=== PATIENT | male | born 1945 | race Caucasian/White ===

== ENCOUNTER 2016-09-29 11:52 | Outpatient (CLI) | payer MEDICARE ==
[2016-09-29 12:35] LABS: #Basophils 0.2 thou/uL (0.0-0.2); #Eosinphils 0.6 thou/uL (0.0-0.7); #Lymphocytes 1.7 thou/uL (1.20-3.40); #Monocytes 0.7 thou/uL (0.11-0.59); #Neutrophils 3.4 thou/uL (1.40-6.50); %Basophils 2.6 % (0.0-1.0); %Lymphocytes 25.5 % (21.0-51.0); %Monocytes 10.8 % (0.0-10.0); Hemoglobin 14.3 g/dL (14.0-18.0); Large Platelets SLIGHT; MDiff Complete? YES; Mean Corpuscular HGB CONC 31.8 g/dL (32.0-36.0); Mean Corpuscular Hemoglobin 30.8 pg (27.0-31.0); Mean Corpuscular Volume 96.9 fl (80.0-94.0); Mean Platelet Volume 15.5 fL (7.4-10.4); Platelet Count 119 thou/uL (130-400); Red Blood Cell (RBC) Count 4.63 mill/uL (4.70-6.10); White Blood Cell (WBC) Count 6.5 thou/uL (4.8-10.8)
--- NOTE | 2016-09-29 13:22 | RAD ---
TWO VIEWS CHEST: HISTORY: Pneumonia, congestive heart failure. FINDINGS: PA and lateral views of the chest are obtained. The lungs are well aerated. No evidence of active intrathoracic disease is seen. No evidence of effusions, pneumonia, or pneumothorax is seen. IMPRESSION: Unremarkable 2 views chest. POS: [facility]
[2016-09-29 15:36] LABS: ALT (SGPT) 28 U/L (0-55); AST (SGOT) 24 U/L (5-34); Albumin 4.3 g/dL (3.4-4.8); Alkaline Phosphatase 161 U/L (40-150); Anion Gap 12 mmol/L (10-20); BUN (Urea Nitrogen) 22 mg/dL (8.4-25.7); Bilirubin, Total 1.1 mg/dL (0.2-1.2); Calc. Creatinine Clearance 0 mL/min (70-130); Calcium 9.6 mg/dL (7.8-10.44); Carbon Dioxide 27 mmol/L (23-31); Chloride 104 mmol/L (98-107); Estimated GFR-MDRD 82; Globulin 2.6 g/dL (2.4-3.5); Glucose 142 mg/dL (80-115); Potassium 3.8 mmol/L (3.5-5.1); Protein, Total 6.9 g/dL (5.8-8.1); Sodium 139 mmol/L (136-145)
== END 2016-09-29 11:53 | disposition home or self-care (01) ==
LOC: EDSEX 11:52 → MADLABBHPM 11:52
PROVIDERS: ATTEND Family Medicine
DX: I50.9 Heart failure, unspecified (principal); J18.9 Pneumonia, unspecified organism
CPT/HCPCS: 36415; 71020; 80053; 83880; 85025

== ENCOUNTER 2016-10-08 07:25 | Outpatient (CLI) | payer MEDICARE ==
[2016-10-08 08:37] LABS: ALT (SGPT) 29 U/L (8-55); AST (SGOT) 29 U/L (5-34); Albumin 4.4 g/dL (3.4-4.8); Alkaline Phosphatase 177 U/L (40-150); Anion Gap 15 mmol/L (10-20); BUN (Urea Nitrogen) 21 mg/dL (8.4-25.7); Calc. Creatinine Clearance 0 mL/min (70-130); Calcium 9.4 mg/dL (7.8-10.44); Carbon Dioxide 24 mmol/L (23-31); Cardiac Risk 4.6 (Less than 4.5); Chloride 104 mmol/L (98-107); Cholesterol 164 mg/dL (< 200 Desired); Estimated GFR-MDRD 83; Globulin 2.9 g/dL (2.4-3.5); Glucose 141 mg/dL (80-115); HDL Cholesterol 36 mg/dL (>60 Neg Risk); LDL Cholesterol, Calculated 105 mg/dL; Potassium 4.3 mmol/L (3.5-5.1); Protein, Total 7.3 g/dL (5.8-8.1); Sodium 139 mmol/L (136-145); Triglycerides 113 mg/dL (Less than 150)
[2016-10-08 10:18] LABS: #Basophils 0.2 thou/uL (0.0-0.2); #Eosinphils 0.9 thou/uL (0.0-0.7); #Lymphocytes 2.1 thou/uL (1.20-3.40); #Monocytes 0.9 thou/uL (0.11-0.59); #Neutrophils 3.8 thou/uL (1.40-6.50); %Basophils 2.3 % (0.0-1.0); %Eosinophils 11.3 % (0.0-10.0); %Lymphocytes 26.5 % (21.0-51.0); %Monocytes 11.7 % (0.0-10.0); %Neutrophils 48.2 % (42.0-75.0); Hemoglobin 15.3 g/dL (14.0-18.0); Large Platelets SLIGHT; MDiff Complete? YES; Mean Corpuscular HGB CONC 32.7 g/dL (32.0-36.0); Mean Corpuscular Hemoglobin 31.5 pg (27.0-31.0); Mean Corpuscular Volume 96.3 fl (80.0-94.0); Mean Platelet Volume 14.7 fL (7.4-10.4); PLT Morphology Comment Appears Decreased; Platelet Count 115 thou/uL (130-400); RBC Distribution Width 13.3 % (11.5-14.5); RBC Morphology Normal; Red Blood Cell (RBC) Count 4.85 mill/uL (4.70-6.10); White Blood Cell (WBC) Count 7.8 thou/uL (4.8-10.8)
== END 2016-10-08 07:26 ==
LOC: MADLAB 07:25
PROVIDERS: ATTEND Internal Medicine Cardiovascular Disease
DX: I50.23 Acute on chronic systolic (congestive) heart failure (principal)
CPT/HCPCS: 36415; 80053; 80061; 83880; 84443; 85025

== ENCOUNTER 2017-04-19 09:19 | Outpatient (CLI) | payer MEDICARE ==
[2017-04-19 09:47] LABS: Hemoglobin A1c 7.1 % (4.0-6.0)
[2017-04-19 09:57] LABS: ALT (SGPT) 25 U/L (8-55); AST (SGOT) 25 U/L (5-34); Albumin 4.3 g/dL (3.4-4.8); Alkaline Phosphatase 134 U/L (40-150); Anion Gap 16 mmol/L (10-20); BUN (Urea Nitrogen) 19 mg/dL (8.4-25.7); Bilirubin, Total 1.4 mg/dL (0.2-1.2); Calc. Creatinine Clearance 0 mL/min (70-130); Calcium 9.4 mg/dL (7.8-10.44); Carbon Dioxide 25 mmol/L (23-31); Cardiac Risk 4.3 (Less than 4.5); Chloride 101 mmol/L (98-107); Cholesterol 168 mg/dl (< 200 Desired); Estimated GFR-MDRD 88; Globulin 2.9 g/dL (2.4-3.5); Glucose 169 mg/dL (80-115); HDL Cholesterol 39 mg/dL (>60 Neg Risk); LDL Cholesterol, Calculated 113 mg/dL; Potassium 4.5 mmol/L (3.5-5.1); Protein, Total 7.2 g/dL (5.8-8.1); Sodium 137 mmol/L (136-145); Triglycerides 78 mg/dL (Less than 150)
[2017-04-19 10:01] LABS: INR-International Normal Ratio 1.1
[2017-04-19 10:02] LABS: PTT 30.3 SEC (22.9-36.1)
[2017-04-19 10:40] LABS: #Basophils 0.1 thou/uL (0.0-0.2); #Eosinphils 0.2 thou/uL (0.0-0.7); #Lymphocytes 1.6 thou/uL (1.20-3.40); #Monocytes 0.7 thou/uL (0.11-0.59); %Basophils 1.6 % (0.0-1.0); %Eosinophils 4.2 % (0.0-10.0); %Lymphocytes 30.1 % (21.0-51.0); %Monocytes 11.6 % (0.0-10.0); %Neutrophils 52.4 % (42.0-75.0); Hemoglobin 15.5 g/dL (14.0-18.0); Mean Corpuscular HGB CONC 32.2 g/dL (32.0-36.0); Mean Corpuscular Hemoglobin 31.1 pg (27.0-31.0); Mean Corpuscular Volume 96.7 fl (80.0-94.0); Mean Platelet Volume 16.7 fL (7.4-10.4); Platelet Count 91 thou/uL (130-400); RBC Distribution Width 12.9 % (11.5-14.5); Red Blood Cell (RBC) Count 4.89 mill/uL (4.70-6.10); White Blood Cell (WBC) Count 5.7 thou/uL (4.8-10.8)
[2017-04-19 17:34] LABS: Creatinine, Urine 85.35 mg/dL (63-166); Microalbumin Urine 1.7 mg/dL (0.5-50.0); Microalbumin/Creat Ratio 19.9 mg/g (Less than 30)
== END 2017-04-19 09:20 | disposition home or self-care (01) ==
LOC: MADLABBHPM 09:19
PROVIDERS: ATTEND Family Medicine
DX: I50.22 Chronic systolic (congestive) heart failure (principal); E11.9 Type 2 diabetes mellitus without complications; N40.0 Benign prostatic hyperplasia without lower urinary tract symptoms; K74.60 Unspecified cirrhosis of liver
CPT/HCPCS: 36415; 80053; 80061; 82043; 83036; 85025; 85610; 85730; G0103

== ENCOUNTER 2017-09-13 17:12 | Outpatient (CLI) | payer MEDICARE ==
--- NOTE | 2017-09-13 17:37 | RAD ---
CHEST RADIOGRAPH TWO VIEWS: CLINICAL HISTORY: COPD exacerbation. COMPARISON: 09/29/2016 FINDINGS: Enlargement of the cardiac silhouette and prominence of the pulmonary vasculature present. No consol idation or significant effusion. The chest is otherwise similar. IMPRESSION: Evidence of congestive heart failure. POS: [facility]
== END 2017-09-13 17:13 | disposition home or self-care (01) ==
LOC: MADRAD 17:12
PROVIDERS: ATTEND Family Medicine
DX: J44.1 Chronic obstructive pulmonary disease with (acute) exacerbation (principal); I50.9 Heart failure, unspecified
CPT/HCPCS: 71046

== ENCOUNTER 2018-06-13 13:48 | Emergency (ER) | payer MEDICARE ==
[2018-06-13 14:45] LABS: Band 1 % (5-11); Eosinophils 2 % (0-10); Giant Platelets SLIGHT; Hemoglobin 14.6 g/dL (14.0-18.0); Large Platelets MODERATE; Lymphocytes 9 % (21-51); MDiff Complete? YES; Mean Corpuscular HGB CONC 32.8 g/dL (32.0-36.0); Mean Corpuscular Hemoglobin 32.2 pg (27.0-31.0); Mean Corpuscular Volume 98.2 fL (78.0-98.0); Mean Platelet Volume 14.9 fL (7.4-10.4); Metamyelocyte 1 % (0-0); Monocytes 9 % (0-10); Neutrophil 69 % (42-75); PLT Morphology Comment Appears Decreased; Platelet Count 100 thou/uL (130-400); RBC Distribution Width 12.4 % (11.5-14.5); RBC Morphology Normal; Reactive Lymphocytes 9 % (0-10); Red Blood Cell (RBC) Count 4.52 mill/uL (4.70-6.10); White Blood Cell (WBC) Count 8.5 thou/uL (4.8-10.8)
[2018-06-13 14:46] LABS: ALT (SGPT) 22 U/L (8-55); AST (SGOT) 25 U/L (5-34); Albumin 4.2 g/dL (3.4-4.8); Alkaline Phosphatase 137 U/L (40-150); Anion Gap 18 mmol/L (10-20); BUN (Urea Nitrogen) 24 mg/dL (8.4-25.7); Bilirubin, Total 0.9 mg/dL (0.2-1.2); Calc. Creatinine Clearance 0 mL/min (70-130); Calcium 9.5 mg/dL (7.8-10.44); Carbon Dioxide 27 mmol/L (23-31); Chloride 101 mmol/L (98-107); Estimated GFR-MDRD 71; Globulin 2.6 g/dL (2.4-3.5); Glucose 113 mg/dL (83-110); Potassium 4.1 mmol/L (3.5-5.1); Protein, Total 6.8 g/dL (5.8-8.1); Sodium 142 mmol/L (136-145)
--- NOTE | 2018-06-13 14:49 | RAD ---
RADIOGRAPH CHEST 2 VIEWS: HISTORY: 73-year-old male with dyspnea. FINDINGS: There is no air space density, pulmonary edema, pleural effusion, or pneumothorax. The cardiac size i s at the upper limits of normal. Interstitial markings are prominent. IMPRESSION: No acute pulmonary findings. jn [] POS: [facility]
[2018-06-13] MEDS ORDERED: Furosemide 40 MG/4 ML VIAL ONE (15:11)
== END 2018-06-13 16:25 | disposition home or self-care (01) ==
LOC: MADERS 13:48
DX: I11.0 Hypertensive heart disease with heart failure (principal); I50.9 Heart failure, unspecified; J44.9 Chronic obstructive pulmonary disease, unspecified; Z79.899 Other long term (current) drug therapy
CPT/HCPCS: 71046; 80053; 83880; 84484; 85025; 87040; 93005; 94760; 96374; J1940

== ENCOUNTER 2018-09-30 13:46 | Outpatient (CLI) | payer MEDICARE ==
--- NOTE | 2018-09-30 14:27 | RAD ---
LEFT HIP 2 VIEWS: INDICATION: Chronic left hip pain. COMPARISON: None. FINDINGS: There is mild degenerative arthrosis of the left hip. There is enthesopathic change off the left gre ater trochanter. No acute fracture or subluxation is evident. IMPRESSION: No acute osseous abnormality. POS: [facility]
== END 2018-09-30 13:47 | disposition home or self-care (01) ==
LOC: MADRAD 13:46
PROVIDERS: ATTEND Family Medicine
DX: M25.552 Pain in left hip (principal)

== ENCOUNTER 2019-03-07 14:34 | Outpatient (CLI) | payer MEDICARE ==
--- NOTE | 2019-03-07 15:26 | RAD ---
AP PELVIS: Date: 03/07/19 INDICATION: Left hip pain. FINDINGS: Mild to moderate degenerative change at the left hip. Spurring from the femoral head and acetabulum. Joint narrowing superiorly on the left. Minimal degenerative4 change at the right hip. Pelvis unremarkable. IMPRESSION: Moderate degenerative change of left hip. POS: [facility]
--- NOTE | 2019-03-07 15:27 | RAD ---
LEFT HIP 2 VIEWS: Date: 03/07/19 HISTORY: Chronic hip pain. No history of trauma. FINDINGS: There are arthritic changes of the hip. There is some mild to moderate joint space narrowing. Ring os teophytic change along the femoral head/neck junction with a femoral head/neck bump suggesting elemen t of femoral acetabular impingement. IMPRESSION: Moderate arthritic changes of the left hip. POS: [facility]
== END 2019-03-07 14:35 | disposition home or self-care (01) ==
LOC: MADRAD 14:34
PROVIDERS: ATTEND Family Medicine
DX: M25.552 Pain in left hip (principal); G89.29 Other chronic pain; M16.12 Unilateral primary osteoarthritis, left hip
CPT/HCPCS: 72170

== ENCOUNTER 2019-03-10 11:10 | Outpatient (CLI) | payer MEDICARE ==
[2019-03-10 12:11] LABS: Anion Gap 15 mmol/L (10-20); BUN (Urea Nitrogen) 20 mg/dL (8.4-25.7); Calc. Creatinine Clearance 0 mL/min (70-130); Calcium 9.8 mg/dL (7.8-10.44); Carbon Dioxide 28 mmol/L (23-31); Chloride 103 mmol/L (98-107); Estimated GFR-MDRD 76; Glucose 226 mg/dL (83-110); Potassium 4.1 mmol/L (3.5-5.1); Sodium 142 mmol/L (136-145)
[2019-03-10 12:38] LABS: #Basophils 0.1 thou/uL (0.0-0.2); #Eosinphils 0.2 thou/uL (0.0-0.7); #Lymphocytes 1.5 thou/uL (1.20-3.40); #Monocytes 0.7 thou/uL (0.11-0.59); #Neutrophils 3.5 thou/uL (1.40-6.50); %Basophils 1.4 % (0.0-1.0); %Eosinophils 3.8 % (0.0-10.0); %Lymphocytes 25.5 % (21.0-51.0); %Monocytes 10.9 % (0.0-10.0); %Neutrophils 58.3 % (42.0-75.0); Hemoglobin 15.6 g/dL (14.0-18.0); Large Platelets SLIGHT; MDiff Complete? YES; Mean Corpuscular HGB CONC 31.2 g/dL (32.0-36.0); Mean Corpuscular Hemoglobin 30.2 pg (27.0-31.0); Mean Corpuscular Volume 96.6 fL (78.0-98.0); Platelet Count 83 thou/uL (130-400); Platelet Morphology Comment PT HAS HX OF DECREASED PLATLETS; RBC Distribution Width 13.8 % (11.5-14.5); Red Blood Cell (RBC) Count 5.16 mill/uL (4.70-6.10); White Blood Cell (WBC) Count 5.9 thou/uL (4.8-10.8)
[2019-03-10 16:59] LABS: Hemoglobin A1c 7.4 % (4.0-6.0)
== END 2019-03-10 11:11 | disposition home or self-care (01) ==
LOC: MADLABBHPM 11:10
PROVIDERS: ATTEND Family Medicine
DX: Z01.818 Encounter for other preprocedural examination (principal)
CPT/HCPCS: 80048; 83036; 85025

== ENCOUNTER 2019-03-21 13:12 | Outpatient (CLI) | payer MEDICARE ==
--- NOTE | 2019-03-21 14:29 | ULT ---
ABDOMINAL ULTRASOUND: DATE: 03/21/2019. COMPARISON: None. HISTORY: Cirrhosis, lower extremity edema. TECHNIQUE: Multiplanar grayscale sonographic imaging of the abdomen provided. FINDINGS: The hepatic parenchyma is mildly heterogeneous. The pancreas is partially obscured by bowel gas. There is a nonspecific hypoechoic lesion within the left lobe of the liver measuring 2.3 x 1.7 x 2.0 cm. It appears to contain an internal thin echogenic septation, and likely represents a septated cyst. Peripheral contour of the liver is mildly irregular, consistent with the provided history of ci rrhosis. Of note, the hypoechoic lesion seen on this examination was also seen on a CT angiogram of the chest performed 11/13/2016 at which time it demonstrated Hounsfield units consistent with a cyst. The imaged IVC and aorta appear grossly unremarkable. The common bile duct measures approximately 3 mm, within normal limits. Right kidney measures 12.9 cm in craniocaudal dimension and demonstrates no evidence for stone, hydro nephrosis, or mass lesion. Gallbladder is surgically absent. Spleen measures up to 11.1 cm, within normal limits. Left kidney measures 11.3 cm in craniocaudal dimension and demonstrates no evidence for stone, hydron ephrosis, or mass lesion. No ascites is noted in the upper abdomen. IMPRESSION: Evidence of cirrhosis. No acute findings. Transcribed Date/Time: 03/21/2019 2:36 PM
== END 2019-03-21 13:13 | disposition home or self-care (01) ==
LOC: MADULT 13:12
PROVIDERS: ATTEND Internal Medicine
DX: K74.60 Unspecified cirrhosis of liver (principal); R60.0 Localized edema
CPT/HCPCS: 76700

== ENCOUNTER 2019-06-27 12:49 | Outpatient (CLI) | payer MEDICARE ==
[2019-06-27 14:12] LABS: #Basophils 0.1 thou/uL (0.0-0.2); #Eosinphils 0.2 thou/uL (0.0-0.7); #Lymphocytes 1.3 thou/uL (1.20-3.40); #Monocytes 0.7 thou/uL (0.11-0.59); #Neutrophils 3.4 thou/uL (1.40-6.50); %Basophils 1.5 % (0.0-1.0); %Eosinophils 3.9 % (0.0-10.0); %Lymphocytes 22.8 % (21.0-51.0); %Monocytes 11.6 % (0.0-10.0); %Neutrophils 60.2 % (42.0-75.0); Giant Platelets SLIGHT; Hemoglobin 14.5 g/dL (14.0-18.0); Large Platelets SLIGHT; MDiff Complete? YES; Mean Corpuscular HGB CONC 30.5 g/dL (32.0-36.0); Mean Corpuscular Hemoglobin 29.6 pg (27.0-31.0); Mean Corpuscular Volume 97.1 fL (78.0-98.0); Mean Platelet Volume 14.1 fL (7.4-10.4); Nucleated RBC 0 % (0); Platelet Count 87 thou/uL (130-400); Platelet Morphology Comment Appears Decreased; RBC Distribution Width 13.1 % (11.5-14.5); Red Blood Cell (RBC) Count 4.88 mill/uL (4.70-6.10); White Blood Cell (WBC) Count 5.7 thou/uL (4.8-10.8)
== END 2019-06-27 12:50 | disposition home or self-care (01) ==
LOC: MADLAB 12:49
PROVIDERS: ATTEND Orthopaedic Surgery
DX: R60.0 Localized edema (principal)
CPT/HCPCS: 36415; 85025

== ENCOUNTER 2019-09-09 14:00 | Inpatient (IN) | payer MEDICARE ==
[2019-09-09] MEDS: Clindamycin 150 MG CAP PO SCH ×2 (17:45→20:45)
[2019-09-09] MEDS: Carvedilol 3.125 MG TAB PO SCH (17:45)
[2019-09-09] MEDS: Warfarin Sodium 5 MG TAB PO SCH (17:46)
[2019-09-09] MEDS ORDERED: Dextrose 5% in Water 1,000 ML IV PRN (18:35)
[2019-09-09] MEDS ORDERED: Dextrose 50% Abboject 50 ML SYRINGE SLOW IVP PRN (18:35)
[2019-09-09] MEDS: Potassium Chloride 20 MEQ TAB PO SCH (20:44)
[2019-09-09] MEDS: Enoxaparin Sodium 100 MG/ML SYRINGE SC SCH (20:46)
[2019-09-09] MEDS: Calcium Carbonate 500 MG ChewTAB PO PRN (21:57)
[2019-09-10 06:11] LABS: Anion Gap 16 mmol/L (10-20); BUN (Urea Nitrogen) 28 mg/dL (8.4-25.7); Calc. Creatinine Clearance 84 mL/min (70-130); Calcium 9.5 mg/dL (7.8-10.44); Carbon Dioxide 35 mmol/L (23-31); Chloride 85 mmol/L (98-107); Estimated GFR-MDRD 61; Glucose 120 mg/dL (83-110); Potassium 3.4 mmol/L (3.5-5.1); Sodium 133 mmol/L (136-145)
[2019-09-10 06:15] LABS: #Basophils 0.2 thou/uL (0.0-0.2); #Eosinphils 0.2 thou/uL (0.0-0.7); #Lymphocytes 2.2 thou/uL (1.20-3.40); #Monocytes 1.3 thou/uL (0.11-0.59); #Neutrophils 5.2 thou/uL (1.40-6.50); %Basophils 1.9 % (0.0-1.0); %Eosinophils 2.6 % (0.0-10.0); %Lymphocytes 23.9 % (21.0-51.0); %Monocytes 14.2 % (0.0-10.0); %Neutrophils 57.4 % (42.0-75.0); Hypochromia SLIGHT = 6-15 cells (100X) (0-5/hpf); MDiff Complete? YES; Mean Corpuscular Hemoglobin 25.7 pg (27.0-31.0); Mean Corpuscular Volume 85.5 fL (78.0-98.0); Mean Platelet Volume 8.2 fL (7.4-10.4); Ovalocytes SLIGHT = 2-5 cells (100X) (0-1/hpf); Platelet Count 190 thou/uL (130-400); Platelet Morphology Comment Appears Adequate; RBC Distribution Width 16.8 % (11.5-14.5); Red Blood Cell (RBC) Count 3.88 mill/uL (4.70-6.10); Target Cells SLIGHT = 2-5 cells (100X) (0-1/hpf); White Blood Cell (WBC) Count 9.1 thou/uL (4.8-10.8)
[2019-09-10] MEDS: HumaLOG 300 UNITS/3 ML VIAL SC PRN ×3 (08:44→16:36)
[2019-09-10] MEDS: Carvedilol 3.125 MG TAB PO SCH ×2 (08:45→16:36)
[2019-09-10] MEDS: Amiodarone 200 MG TAB PO SCH (08:46)
[2019-09-10] MEDS: Clindamycin 150 MG CAP PO SCH ×4 (08:47→20:25)
[2019-09-10] MEDS: glipiZIDE 5 MG TAB PO SCH (08:48)
[2019-09-10] MEDS: Enoxaparin Sodium 100 MG/ML SYRINGE SC SCH ×2 (08:48→20:24)
[2019-09-10] MEDS: Furosemide 80 MG TAB PO SCH ×2 (08:49→13:11)
[2019-09-10] MEDS: Tamsulosin HCl 0.4 MG CAP PO SCH (08:51)
[2019-09-10] MEDS: Potassium Chloride 20 MEQ TAB PO SCH ×2 (08:51→20:25)
[2019-09-10] MEDS: Calcium Carbonate 500 MG ChewTAB PO PRN (14:09)
[2019-09-10] MEDS ORDERED: Ondansetron ODT 4 MG TAB PO SCH ×2 (14:15→21:30)
[2019-09-10] MEDS: Warfarin Sodium 5 MG TAB PO SCH (16:39)
[2019-09-10] MEDS: Acetaminophen 325 MG TAB PO PRN (20:32)
[2019-09-10] MEDS ORDERED: Simethicone Chewable 80 MG TAB PO PRN (21:28)
[2019-09-10] MEDS ORDERED: Simethicone Chewable 80 MG TAB PO SCH (21:30)
--- NOTE | 2019-09-11 01:48 | HP ---
PRIMARY CARE PROVIDER: Rosemarie Caceres MD HISTORY OF PRESENT ILLNESS: The patient is a 74-year-old male with multiple medical comorbidities, who was recently discharged following a hospitalization for right lower extremity cellulitis. The patient presented to the ER on September 04, 2019 with complaints of shortness of breath and right lower extremity pain. Venous Dopplers were negative for DVT. Prior to this hospitalization, he was treated for pulmonary embolism. During this hospitalization, the patient was treated with IV antibiotics. He was noted to have shortness of breath and pleural effusion. He underwent a thoracentesis yielding 650 mL of serosanguineous fluid. Laboratory evaluation showed that this was a transudative effusion related to the patient's liver disease. At the time of discharge, the patient was discharged on oral antibiotics and was discharged with warfarin and Lovenox. The patient is being admitted here for physical therapy and rehabilitation. PAST MEDICAL HISTORY: 1. Diastolic heart failure. 2. Atrial fibrillation. 3. Diabetes mellitus type 2. 4. COPD. 5. Hypertension. 6. Cirrhosis. 7. Recent history of pulmonary embolism. 8. BPH. PAST SURGICAL HISTORY: 1. Cholecystectomy. 2. Left hip surgery. 3. Knee surgery. 4. Cardiac catheterization. 5. Ventral hernia repair. 6. Left atrial appendage ligation. SOCIAL HISTORY: The patient has a prior history of drug abuse. The patient lives at home with his and is usually independent of ADLs. CURRENT MEDICATIONS: 1. Glipizide 5 mg p.o. daily. 2. Tamsulosin 0.8 mg p.o. daily. 3. Amiodarone 100 p.o. daily. 4. Potassium chloride 20 mEq p.o. b.i.d. 5. Warfarin 7.5 mg p.o. daily. 6. Zaroxolyn 5 mg p.o. daily. 7. Lasix 80 mg p.o. b.i.d. 8. Lovenox 100 mg subcu b.i.d. 9. Clindamycin 300 mg p.o. q.i.d. 10. Carvedilol 6.25 mg p.o. b.i.d. with meals. 11. DuoNeb 3 mL q.4 hours while awake. ALLERGIES: NO KNOWN DRUG ALLERGIES. THE PATIENT IS ALLERGIC TO ADHESIVE TAPE. REVIEW OF SYSTEMS: GENERAL: The patient denies fever, chills, or night sweats. HEENT: The patient denies vision changes or eye pain. CARDIOVASCULAR: The patient denies chest pain or shortness of breath. PULMONARY: The patient denies cough or shortness of breath. ABDOMEN: The patient denies nausea, vomiting, diarrhea, or constipation. HEMATOLOGICAL: The patient denies easy bruising or bleeding. NEUROLOGICAL: The patient denies headache or dizziness. PSYCHIATRIC: The patient denies anxiety or depression. SKIN: The patient denies rashes or lesions. PHYSICAL EXAMINATION: VITAL SIGNS: Temperature 98.6, pulse 106, respirations 18, oxygen 95% on room air, blood pressure 111/61. GENERAL: The patient is alert and oriented x3, in no distress. HEENT: Normocephalic, atraumatic. Extraocular muscles intact. Conjunctiva clear. Moist mucous membranes. CARDIOVASCULAR: Irregularly irregular rate, normal rhythm. No murmurs, rubs, or gallops. RESPIRATORY: Lungs are clear to auscultation bilaterally. No crackles, rhonchi, or wheezes. ABDOMEN: Soft, nontender to palpation. EXTREMITIES: Normal bulk and tone. Bilateral lower extremity peripheral edema, right greater than left. SKIN: Skin of the left lower extremity from the foot extending up to the mid-damon is red and hot. No increase in warmth. No weeping or oozing of skin. NEUROLOGICAL: Cranial nerves 2 through 12 intact grossly. No focal deficits. PSYCHIATRIC: Appropriate mood and affect. LABORATORY INVESTIGATION: CBC; white blood cell count 9.1, hemoglobin 10.0, hematocrit 33.2, platelet count 190. BMP; sodium 133, potassium 3.4, chloride 85, carbon dioxide 35, BUN 28, creatinine 1.17, and glucose 120. ASSESSMENT AND PLAN: The patient is a 74-year-old male with complex medical history with recent discharge for lower extremity cellulitis, admitted to nursing home for rehabilitation. 1. Right lower extremity cellulitis. We will continue p.o. antibiotics. With lower extremity swelling, we will encourage the patient to keep the leg elevated as much as possible. We will also use compression dressings as well and continue to monitor. 2. Physical debility. Physical therapy and occupational therapy have been ordered, the patient's progress depending on active participation. 3. Atrial fibrillation, status post left atrial appendage occlusion. We will continue warfarin for anticoagulation. The patient was being bridged with Lovenox; however, he is adamantly refusing Lovenox at this time. The patient had previously been started on Eliquis, but was not able to afford it on an outpatient basis. Therefore, warfarin will be the most cost effective solution and given that his INR is still subtherapeutic. Lovenox bridging is necessary, especially given the patient's history of recent splenic infarct and pulmonary embolism. The risks associated with subtherapeutic INR were explained to the patient in great detail. The risks including extension of the current pulmonary embolus, development of lower extremity deep venous thromboses, and even were explained to the patient. The patient still refuses at this time. We will continue to readdress with each patient encounter. 4. Recent history of pulmonary embolism and splenic infarct, see above. 5. Diastolic heart failure. We will place the patient on fluid restriction. We will monitor ins and outs, and wait to ensure continued diuresis. Home medications resumed. 6. Diabetes mellitus type 2. We will resume the patient's home medications; a.c. and bedtime Accu-Cheks ordered. We will place the patient on mild sliding scale insulin as well. ADA diet has been ordered. 7. History of cirrhosis. 8. Code status is DNR. 9. Deep venous thrombosis prophylaxis, warfarin. Job ID: [id number]
[2019-09-11 05:40] LABS: INR-International Normal Ratio 1.8; Prothrombin Time 20.5 SEC (12.0-14.7)
[2019-09-11] MEDS: Amiodarone 200 MG TAB PO SCH (08:18)
[2019-09-11] MEDS: Potassium Chloride 20 MEQ TAB PO SCH ×2 (08:19→17:50)
[2019-09-11] MEDS: Tamsulosin HCl 0.4 MG CAP PO SCH (08:19)
[2019-09-11] MEDS: Carvedilol 3.125 MG TAB PO SCH ×2 (08:20→17:51)
[2019-09-11] MEDS: glipiZIDE 5 MG TAB PO SCH (08:21)
[2019-09-11] MEDS: Furosemide 80 MG TAB PO SCH ×2 (08:21→13:57)
[2019-09-11] MEDS: Calcium Carbonate 500 MG ChewTAB PO PRN ×2 (08:29→14:05)
[2019-09-11] MEDS: Clindamycin 150 MG CAP PO SCH ×4 (08:29→20:36)
[2019-09-11] MEDS: HumaLOG 300 UNITS/3 ML VIAL SC PRN ×3 (08:37→17:52)
[2019-09-11 09:06] VITALS: BMI 33.4
[2019-09-11] MEDS: Enoxaparin Sodium 100 MG/ML SYRINGE SC SCH ×2 (09:42→20:36)
[2019-09-11] MEDS: Warfarin Sodium 5 MG TAB PO SCH (17:52)
[2019-09-11] MEDS ORDERED: Mag-Al Plus 1200 MG/1200 MG/120 MG/30 ML UDCUP PO SCH (18:30)
[2019-09-11 19:26] LABS: Troponin I 0.082 ng/mL (< 0.028)
--- NOTE | 2019-09-12 00:12 | PRG ---
DATE OF SERVICE: 09/11/2019 SUBJECTIVE: The patient is a 74-year-old male with recent history of pulmonary embolism and recent discharge for right lower extremity cellulitis, presenting to senior care for rehabilitation and physical therapy. Overnight, the patient was complaining of reflux-type symptoms, has noted some improvement with Tums and simethicone. The patient is having bowel movements reportedly. Denies any chest pain or difficulty breathing. No other adverse events overnight. OBJECTIVE: VITAL SIGNS: Temperature 98.0, pulse 108, respirations 18, oxygen 96% on room air, and blood pressure 122/64. GENERAL: The patient is alert and oriented x3. Sitting in a chair at the bedside. HEENT: Extraocular muscles are intact. Moist mucous membranes. CARDIOVASCULAR: rate and rhythm. No murmurs, rubs, or gallops. CARDIOVASCULAR: rate and rhythm. No murmurs, rubs, or gallops. ABDOMEN: Soft, nontender to palpation. Nondistended. EXTREMITIES: Bilateral lower extremity pitting edema extending upward towards damon. Right lower extremity with marked redness, stable compared to prior examination. No weeping or oozing skin lesions. NEURO: Cranial nerves 2 through 12 intact grossly. PSYCHIATRIC: Appropriate mood and affect. LABORATORY DATA: INR 1.8, PT 28.5. ASSESSMENT AND PLAN: The patient is a 74-year-old male, receiving physical therapy and occupational therapy. We will continue treatment for right lower extremity cellulitis. 1. Right lower extremity cellulitis. Continue clindamycin x7 days. We will also continue compression and leg elevation as needed to help with swelling. 2. Generalized weakness. Continue physical therapy and occupational therapy. 3. Atrial fibrillation. Continue warfarin with bridging of Lovenox. INR almost therapeutic range. The patient did agree to continue Lovenox injections. 4. Recent history of pulmonary embolism and splenic infarct. Continue anticoagulation. 5. Diastolic heart failure. Continue diuresis and fluid restriction and salt restriction as well. Diuresis also with metolazone. We will continue to monitor electrolytes and replace as needed. 6. Diabetes mellitus, type 2. Continue home medications. Diabetic diet has been ordered. Continue a.c. and at bedtime Accu-Cheks. Job ID: [id number]
[2019-09-12 05:58] LABS: INR-International Normal Ratio 1.8; Mean Corpuscular HGB CONC 30.2 g/dL (32.0-36.0); Mean Corpuscular Hemoglobin 25.8 pg (27.0-31.0); Mean Corpuscular Volume 85.2 fL (78.0-98.0); Mean Platelet Volume 8.9 fL (7.4-10.4); Platelet Count 202 thou/uL (130-400); Prothrombin Time 21.1 SEC (12.0-14.7); RBC Distribution Width 17.2 % (11.5-14.5); Red Blood Cell (RBC) Count 3.87 mill/uL (4.70-6.10)
[2019-09-12 06:14] LABS: ALT (SGPT) 38 U/L (8-55); AST (SGOT) 38 U/L (5-34); Albumin 3.4 g/dL (3.4-4.8); Alkaline Phosphatase 179 U/L (40-110); Anion Gap 20 mmol/L (10-20); BUN (Urea Nitrogen) 34 mg/dL (8.4-25.7); Bilirubin, Total 1.4 mg/dL (0.2-1.2); Calc. Creatinine Clearance 72 mL/min (70-130); Calcium 9.5 mg/dL (7.8-10.44); Carbon Dioxide 35 mmol/L (23-31); Chloride 81 mmol/L (98-107); Estimated GFR-MDRD 51; Globulin 3.6 g/dL (2.4-3.5); Glucose 136 mg/dL (83-110); Magnesium 1.6 mg/dL (1.6-2.6); Potassium 3.3 mmol/L (3.5-5.1); Sodium 133 mmol/L (136-145)
[2019-09-12] MEDS: Tamsulosin HCl 0.4 MG CAP PO SCH (08:23)
[2019-09-12] MEDS: Clindamycin 150 MG CAP PO SCH ×5 (08:23→21:02)
[2019-09-12] MEDS: Potassium Chloride 20 MEQ TAB PO SCH ×2 (08:24→18:30)
[2019-09-12] MEDS: Amiodarone 200 MG TAB PO SCH (08:24)
[2019-09-12] MEDS: Enoxaparin Sodium 100 MG/ML SYRINGE SC SCH ×2 (08:25→20:15)
[2019-09-12] MEDS: glipiZIDE 5 MG TAB PO SCH (08:25)
[2019-09-12] MEDS: HumaLOG 300 UNITS/3 ML VIAL SC PRN ×4 (08:25→21:18)
[2019-09-12] MEDS: Calcium Carbonate 500 MG ChewTAB PO PRN ×2 (08:40→21:22)
[2019-09-12] MEDS ORDERED: Sucralfate 1 GM TAB PO SCH (09:00)
[2019-09-12] MEDS: Sucralfate 1 GM TAB PO SCH ×2 (09:55→20:13)
[2019-09-12] MEDS: Furosemide 80 MG TAB PO SCH (10:33)
[2019-09-12] MEDS: Carvedilol 3.125 MG TAB PO SCH (10:33)
[2019-09-12] MEDS ORDERED: Carvedilol 3.125 MG TAB PO SCH (10:54)
[2019-09-12] MEDS ORDERED: Carvedilol 6.25 MG TAB PO SCH (11:15)
[2019-09-12] MEDS ORDERED: Lidocaine 2% Viscous Solution 10 ML, Aluminum & Magnesium Hydroxide 30 ML SSW SCH (14:30)
[2019-09-12] MEDS ORDERED: Lidocaine 2% Viscous Solution 10 ML, Mag Hydrox/Al Hydrox/Simeth 30 ML SSW SCH (15:30)
[2019-09-12] MEDS: Warfarin Sodium 5 MG TAB PO SCH (17:45)
[2019-09-12] MEDS: Carvedilol 6.25 MG TAB PO SCH (17:45)
--- NOTE | 2019-09-12 18:15 | PRG ---
DATE OF SERVICE: SUBJECTIVE: The patient was seen and examined at the bedside. He continues to complain of substernal and epigastric sharp pain. The patient did undergo an evaluation for active cardiac ischemia last night, which ultimately was unremarkable. He continues to complain of this pain intermittently today, even during this evaluation. OBJECTIVE: VITAL SIGNS: Temperature 97.7, pulse 105, respirations 18, oxygen 92% on room air, and blood pressure 99/57. GENERAL: The patient is alert and oriented x3, in no apparent distress. HEART: Irregularly irregular rate and rhythm. No murmurs, rubs, or gallops. LUNGS: Clear to auscultation bilaterally. No wheezes, rhonchi, or crackles. ABDOMEN: Soft, nontender to palpation. Nondistended. EXTREMITIES: Right lower extremity with significant erythema extending from the foot up to the mid-damon. Bilateral lower extremity pitting edema is stable compared to previous exam. LABORATORY DATA: CMP; sodium 133, potassium 3.4, chloride 81, carbon dioxide 35, BUN 34, creatinine 1.37, glucose 136, total bilirubin 1.4, AST 38, ALT 30, alkaline phosphatase 179. Troponin 0.082. EKG showed atrial fibrillation with PVCs and ST/T changes similar to previous examination. PT 21.1, INR 1.8. Hematology; white blood cell count 11.0, hemoglobin 10.0, hematocrit 33.0, platelet count 202. ASSESSMENT AND PLAN: The patient is a 74-year-old male with history of right lower extremity cellulitis with recent history of splenic infarct and pulmonary embolism, currently in custodial for physical rehabilitation. 1. Physical debility. Continue PT and OT. 2. Severe dyspepsia. Protonix increased to twice daily. Sucralfate has been added as well. May consider GI cocktail if symptoms persist, unlikely related to cardiac etiology. However, we will continue to monitor, especially if no response to GI cocktail. 3. Right lower extremity cellulitis. Continue antibiotics. 4. Chronic venous insufficiency with possible superimposed stasis dermatitis on right lower extremity. We will consider steroid cream to be applied to the patient's right lower extremity. 5. Diastolic heart failure. We will continue diuresis with Lasix. However, we will decrease from 80 twice daily to 40 once daily due to hypotension. Continue carvedilol. Continue fluid restriction and daily weights as well as in's and out's. 6. Deep venous thrombosis, pulmonary embolism. Continue warfarin bridging with Lovenox while INR is subtherapeutic. The patient is actually refusing Lovenox at this time. We will continue to express importance of Lovenox. We will keep it as part of this patient's ordered medications. We will not discontinue it. 7. Atrial fibrillation, see above. 8. Diabetes mellitus type 2. Continue home medications. Diabetic diet is ordered. A.c. and at bedtime Accu-Cheks, sliding scale insulin on board as well. Job ID: [id number]
[2019-09-13] MEDS: Sucralfate 1 GM TAB PO SCH ×2 (05:01→20:23)
[2019-09-13 05:32] LABS: INR-International Normal Ratio 1.9; Prothrombin Time 21.4 SEC (12.0-14.7)
[2019-09-13] MEDS: Furosemide 40 MG TAB PO SCH (08:20)
[2019-09-13] MEDS: glipiZIDE 5 MG TAB PO SCH (08:20)
[2019-09-13] MEDS: Carvedilol 6.25 MG TAB PO SCH ×2 (08:20→16:42)
[2019-09-13] MEDS: Amiodarone 200 MG TAB PO SCH (08:20)
[2019-09-13] MEDS: Enoxaparin Sodium 100 MG/ML SYRINGE SC SCH ×2 (08:21→20:26)
[2019-09-13] MEDS ORDERED: Furosemide 20 MG TAB PO SCH (09:00)
[2019-09-13] MEDS: Potassium Chloride 20 MEQ TAB PO SCH ×2 (09:40→16:42)
[2019-09-13] MEDS: Clindamycin 150 MG CAP PO SCH (09:40)
[2019-09-13] MEDS: Tamsulosin HCl 0.4 MG CAP PO SCH (09:42)
[2019-09-13] MEDS: Calcium Carbonate 500 MG ChewTAB PO PRN ×2 (09:53→22:12)
[2019-09-13] MEDS ORDERED: Triamcinolone 0.1% Cream 15 GM TUBE TOP SCH (10:45)
[2019-09-13 11:34] LABS: #Basophils 0.1 thou/uL (0.0-0.2); #Eosinphils 0.5 thou/uL (0.0-0.7); #Lymphocytes 2.1 thou/uL (1.20-3.40); #Monocytes 0.5 thou/uL (0.11-0.59); #Neutrophils 5.6 thou/uL (1.40-6.50); %Basophils 1.1 % (0.0-1.0); %Eosinophils 5.6 % (0.0-10.0); %Lymphocytes 24.2 % (21.0-51.0); %Monocytes 5.3 % (0.0-10.0); %Neutrophils 63.8 % (42.0-75.0); Hemoglobin 9.6 g/dL (14.0-18.0); Mean Corpuscular HGB CONC 31.9 g/dL (32.0-36.0); Mean Corpuscular Hemoglobin 26.6 pg (27.0-31.0); Mean Corpuscular Volume 83.4 fL (78.0-98.0); Platelet Count 206 thou/uL (130-400); RBC Distribution Width 17.1 % (11.5-14.5); White Blood Cell (WBC) Count 8.8 thou/uL (4.8-10.8)
[2019-09-13] MEDS: HumaLOG 300 UNITS/3 ML VIAL SC PRN ×2 (11:54→16:43)
[2019-09-13] MEDS ORDERED: Lidocaine 2% Viscous Solution 10 ML, Mag Hydrox/Al Hydrox/Simeth 30 ML SSW SCH (16:30)
[2019-09-13] MEDS: Warfarin Sodium 5 MG TAB PO SCH (16:42)
[2019-09-13] MEDS: Triamcinolone 0.1% Cream 15 GM TUBE TOP SCH (20:25)
[2019-09-14] MEDS: Acetaminophen 325 MG TAB PO PRN (02:07)
[2019-09-14] MEDS: Sucralfate 1 GM TAB PO SCH ×2 (05:35→21:42)
[2019-09-14 05:39] LABS: Prothrombin Time 22.6 SEC (12.0-14.7)
[2019-09-14] MEDS: Tamsulosin HCl 0.4 MG CAP PO SCH (08:49)
[2019-09-14] MEDS: Amiodarone 200 MG TAB PO SCH (08:49)
[2019-09-14] MEDS: Carvedilol 6.25 MG TAB PO SCH ×2 (08:50→17:00)
[2019-09-14] MEDS: glipiZIDE 5 MG TAB PO SCH (08:50)
[2019-09-14] MEDS: Furosemide 40 MG TAB PO SCH (08:50)
[2019-09-14] MEDS: Potassium Chloride 20 MEQ TAB PO SCH ×2 (08:50→17:00)
[2019-09-14] MEDS: Enoxaparin Sodium 100 MG/ML SYRINGE SC SCH ×2 (08:51→21:43)
[2019-09-14] MEDS: Triamcinolone 0.1% Cream 15 GM TUBE TOP SCH ×2 (08:53→21:43)
[2019-09-14] MEDS: Calcium Carbonate 500 MG ChewTAB PO PRN ×2 (09:02→17:00)
[2019-09-14] MEDS: HumaLOG 300 UNITS/3 ML VIAL SC PRN ×3 (12:47→21:43)
[2019-09-14] MEDS: Warfarin Sodium 5 MG TAB PO SCH (17:00)
[2019-09-14] MEDS: Simethicone Chewable 80 MG TAB PO PRN (23:01)
[2019-09-15 05:34] LABS: INR-International Normal Ratio 1.8
[2019-09-15] MEDS: Sucralfate 1 GM TAB PO SCH ×2 (05:39→20:08)
[2019-09-15] MEDS: glipiZIDE 5 MG TAB PO SCH (09:12)
[2019-09-15] MEDS: Potassium Chloride 20 MEQ TAB PO SCH ×2 (09:12→17:01)
[2019-09-15] MEDS: Furosemide 40 MG TAB PO SCH (09:12)
[2019-09-15] MEDS: Tamsulosin HCl 0.4 MG CAP PO SCH (09:12)
[2019-09-15] MEDS: Amiodarone 200 MG TAB PO SCH (09:12)
[2019-09-15] MEDS: Carvedilol 6.25 MG TAB PO SCH ×2 (09:13→17:01)
[2019-09-15] MEDS: Enoxaparin Sodium 100 MG/ML SYRINGE SC SCH ×2 (09:13→20:08)
[2019-09-15] MEDS: Triamcinolone 0.1% Cream 15 GM TUBE TOP SCH ×2 (09:14→20:13)
[2019-09-15] MEDS: Simethicone Chewable 80 MG TAB PO PRN (12:31)
[2019-09-15] MEDS: HumaLOG 300 UNITS/3 ML VIAL SC PRN (12:32)
[2019-09-15] MEDS: Warfarin Sodium 2 MG TAB PO SCH (17:01)
[2019-09-15] MEDS: Calcium Carbonate 500 MG ChewTAB PO PRN (17:06)
[2019-09-16] MEDS: Calcium Carbonate 500 MG ChewTAB PO PRN ×3 (05:24→21:19)
[2019-09-16] MEDS: Sucralfate 1 GM TAB PO SCH ×2 (05:24→21:01)
[2019-09-16 05:54] LABS: INR-International Normal Ratio 1.9; Prothrombin Time 21.8 SEC (12.0-14.7)
[2019-09-16] MEDS: Enoxaparin Sodium 100 MG/ML SYRINGE SC SCH ×2 (08:39→20:59)
[2019-09-16] MEDS: Tamsulosin HCl 0.4 MG CAP PO SCH (08:40)
[2019-09-16] MEDS: Furosemide 40 MG TAB PO SCH (08:40)
[2019-09-16] MEDS: Amiodarone 200 MG TAB PO SCH (08:40)
[2019-09-16] MEDS: glipiZIDE 5 MG TAB PO SCH (08:40)
[2019-09-16] MEDS: Potassium Chloride 20 MEQ TAB PO SCH ×2 (08:40→16:51)
[2019-09-16] MEDS: Carvedilol 6.25 MG TAB PO SCH ×2 (08:41→16:51)
[2019-09-16] MEDS: HumaLOG 300 UNITS/3 ML VIAL SC PRN ×3 (08:42→16:52)
[2019-09-16] MEDS: Triamcinolone 0.1% Cream 15 GM TUBE TOP SCH ×2 (08:46→21:19)
[2019-09-16] MEDS: Warfarin Sodium 2 MG TAB PO SCH (16:52)
[2019-09-17 05:36] LABS: INR-International Normal Ratio 2.1
[2019-09-17] MEDS: Sucralfate 1 GM TAB PO SCH ×2 (06:47→20:44)
[2019-09-17] MEDS: Enoxaparin Sodium 100 MG/ML SYRINGE SC SCH ×2 (08:37→20:44)
[2019-09-17] MEDS: Carvedilol 6.25 MG TAB PO SCH ×2 (08:42→16:48)
[2019-09-17] MEDS: Amiodarone 200 MG TAB PO SCH (08:42)
[2019-09-17] MEDS: Furosemide 40 MG TAB PO SCH (08:42)
[2019-09-17] MEDS: Tamsulosin HCl 0.4 MG CAP PO SCH (08:42)
[2019-09-17] MEDS: glipiZIDE 5 MG TAB PO SCH (08:42)
[2019-09-17] MEDS: Calcium Carbonate 500 MG ChewTAB PO PRN ×2 (08:43→16:48)
[2019-09-17] MEDS: Potassium Chloride 20 MEQ TAB PO SCH ×2 (08:43→16:48)
[2019-09-17] MEDS: HumaLOG 300 UNITS/3 ML VIAL SC PRN ×2 (08:45→16:48)
[2019-09-17] MEDS ORDERED: Triamcinolone 40 MG/ML VIAL ONE (09:39)
[2019-09-17] MEDS: Triamcinolone 0.1% Cream 15 GM TUBE TOP SCH ×2 (09:45→20:44)
[2019-09-17] MEDS: Warfarin Sodium 2 MG TAB PO SCH (16:49)
[2019-09-18] MEDS: Sucralfate 1 GM TAB PO SCH (06:43)
[2019-09-18 08:07] VITALS: BP 128/58; TEMP 97.4
[2019-09-18] MEDS: Carvedilol 6.25 MG TAB PO SCH (08:08)
[2019-09-18] MEDS: Potassium Chloride 20 MEQ TAB PO SCH (08:08)
[2019-09-18] MEDS: glipiZIDE 5 MG TAB PO SCH (08:09)
[2019-09-18] MEDS: Amiodarone 200 MG TAB PO SCH (08:09)
[2019-09-18] MEDS: Tamsulosin HCl 0.4 MG CAP PO SCH (08:10)
[2019-09-18] MEDS: Furosemide 40 MG TAB PO SCH (08:10)
[2019-09-18] MEDS: HumaLOG 300 UNITS/3 ML VIAL SC PRN (08:14)
[2019-09-18] MEDS: Enoxaparin Sodium 100 MG/ML SYRINGE SC SCH (08:18)
[2019-09-18] MEDS: Triamcinolone 0.1% Cream 15 GM TUBE TOP SCH (11:41)
--- NOTE | 2019-09-20 12:53 | DIS ---
DATE OF ADMISSION: 09/09/2019 DATE OF DISCHARGE: 09/18/2019 PRIMARY DIAGNOSES: 1. Right lower extremity cellulitis. 2. Generalized weakness. SECONDARY DIAGNOSES: 1. Chronic atrial fibrillation, rate controlled. 2. Recent history of pulmonary embolism. 3. Diastolic heart failure. 4. Diabetes mellitus type 2. 5. History of cirrhosis. 6. Venous insufficiency PROCEDURES PERFORMED DURING HOSPITALIZATION: None. CONSULTS: None. DISCHARGE MEDICATIONS: 1. Pantoprazole 40 mg daily. 2. Furosemide 40 mg daily. 3. Warfarin 6 mg p.o. daily. 4. Acetaminophen 650 mg p.o. q.6 hours p.r.n. 5. Tums 1000 mg p.o. t.i.d. p.r.n. 6. Triamcinolone acetonide 0.1% cream one application topically b.i.d. 7. Glipizide 5 mg p.o. daily. 8. DuoNeb 3 mL q.4 hours p.r.n. 9. Carvedilol 6.25 mg p.o. b.i.d. with meals. 10. Potassium chloride 20 mEq p.o. b.i.d. 11. Amiodarone 100 mg p.o. daily. 12. Tamsulosin 0.8 mg p.o. daily. DISCONTINUED MEDICATIONS: None. HOSPITAL COURSE: The patient is a 74-year-old male with multiple medical comorbidities with multiple hospitalizations, who was admitted to [facility] for physical therapy and occupational therapy, status post hospitalization for right lower extremity cellulitis. Regarding generalized weakness, the patient progressed with physical therapy very well. Regarding right lower extremity cellulitis, patient did undergo treatment with IV antibiotics with eventual transition to PO antibiotics prior to discharge from [facility]. P.O. antibiotics were continued upon admission to [facility]. The patient's white count was trended down to 8.8 at last check. Procalcitonin was also 0.07, so the decision was made to discontinue antibiotic treatments. With right lower extremity erythema, the patient does have a history of chronic venous stasis and treatment for stasis dermatitis was initiated with topical steroid creams. The patient did have some improvement in the appearance of redness with this as well. The patient did complain of intermittent epigastric abdominal pain with improvement with GI cocktail x2, simethicone, and PPI treatment. On the date of discharge, patient expressed desire to return home and continue physical therapy on an outpatient basis. I did explain the patient that I believe he would benefit from more intensive physical therapy and rehabilitation at [facility], however, he expressed desire to go home. Patient' s vitals were stable at the time of discharge, was afebrile and after discussion with physical therapist, the decision was made to discharge patient and have him continue physical therapy on an outpatient basis. Warfarin was started prior to discharge from [facility] and warfarin therapy was continued at [facility]. The patient was bridged with Lovenox almost consistently, he did refuse a few doses due to upset stomach. At the time of discharge, patient's INR was in therapeutic range. DISPOSITION: Stable. DISCHARGE INSTRUCTIONS: 1. Location: Home with physical therapy and occupational therapy and care home for weekly INR draws. 2. Diet: Heart healthy and ADA. 3. Activity: Ad grecia. 4. Followup: Patient is to follow up with Rosemarie Caceres MD, in 5 to 7 days. Job ID: [id number] [facility]
--- NOTE | 2019-09-21 03:04 | PQF ---
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 Clinical indicators are provided on the bottom of this form for your review Please check appropriate box(s): [ ] Cellulitis is due to diabetes [ ] Cellulitis is not due to diabetes [ ] Other diagnosis [X ] Unable to determine In addition, please specify: Present on Admission (POA): [X ] Yes [ ] No [ ] Unable to determine For continuity of documentation, please document condition throughout progress notes and discharge summary. Thank You. CLINICAL INDICATORS - SIGNS / SYMPTOMS / LABS Right lower extremity cellulitis, will continue antibiotics. We will use compression dressings as well and continue to monitor - H and P by Rosemarie Roberts Diabetes mellitus type 2. We will resume patient's home medications a.c. and bedtime Accu-Cheks ordered. Will place the patient on mild sliding scale insulin as well. ADA diet has been ordered - H and P by Rosemarie Roberts RISKS: Chronic venous insufficiency with superimposed stasis dermatitis - Progress note dated 09/11 by Rosemarie Roberts Physical debility, on PT and OT - Progress note dated 09/11 by Rosemarie Roberts TREATMENT: PO Clindamycin from 09/08 to 09/12 - MAR Humalog insulin from 09/08 to 09/17 - AUG Will continue compression and leg elevation - Progress note dated 09/10 by Rosemarie Roberts (This form is maintained as a part of the permanent medical record) 2014 [employer] All Rights Reserved Cristian SAM
== END 2019-09-18 12:58 | disposition home or self-care (01) | DRG 603 ==
LOC: MADMS 14:00
PROVIDERS: ADMIT Family Medicine; ATTEND Family Medicine
DX: L03.115 Cellulitis of right lower limb (principal); I50.32 Chronic diastolic (congestive) heart failure; R53.81 Other malaise; Z66 Do not resuscitate; I48.91 Unspecified atrial fibrillation; E11.9 Type 2 diabetes mellitus without complications; J44.9 Chronic obstructive pulmonary disease, unspecified; N40.0 Benign prostatic hyperplasia without lower urinary tract symptoms; I11.0 Hypertensive heart disease with heart failure; K74.60 Unspecified cirrhosis of liver; I87.2 Venous insufficiency (chronic) (peripheral); R10.13 Epigastric pain; Z86.711 Personal history of pulmonary embolism; Z90.49 Acquired absence of other specified parts of digestive tract; Z79.01 Long term (current) use of anticoagulants
CPT/HCPCS: 36415; 36416; 80048; 80053; 83735; 84145; 84484; 85025; 85027; 85610; 94640; J1650; J3301; J7620; Q0162

== ENCOUNTER 2019-11-16 10:30 | Outpatient (CLI) | payer MEDICARE ==
--- NOTE | 2019-11-16 13:31 | CT ---
EXAM: BRAIN CT WITHOUT IV CONTRAST 11/16/19 HISTORY: Injury from a fall one day ago. FINDINGS: Atrophy and chronic white matter ischemic change. No focal mass or midline shift. No intra or extra-a xial hemorrhage. Sinuses and mastoids demonstrate some sinus mucosal change and minimal fluid in the right maxillary sinus. IMPRESSION: Atrophy and chronic white matter ischemic change. Right maxillary sinus mucosal change with minimal f luid. POS: [facility]
== END 2019-11-16 10:31 | disposition home or self-care (01) ==
LOC: MADCT 10:30
PROVIDERS: ATTEND Family Medicine
DX: S09.90XA Unspecified injury of head, initial encounter (principal); G31.9 Degenerative disease of nervous system, unspecified; I67.82 Cerebral ischemia; J34.89 Other specified disorders of nose and nasal sinuses
CPT/HCPCS: 70450